=== PATIENT | female | born 1980 | race Two or more races ===

== ENCOUNTER 2024-11-04 10:58 | Emergency (ER) | payer OTHER ==
[~2024-11-04] VITALS: Ht 157.5 cm; Wt 64.4 kg
[2024-11-04] MEDS ORDERED: 0.9 % SODIUM CHLORIDE 500 ML IV ONE (11:15)
[2024-11-04 12:04] LABS: BASO % 0.3 % (0.1-1.2); EOS # 0.03 (0.04-0.54); EOS % 0.3 % (0.7-7.0); LYMPH # 1.06 (1.18-3.74); LYMPH % 9.0 % (19.3-53.1); MEAN PLATELET VOLUME 11.30 fl (9.4-12.4); MONO # 0.47 (0.24-0.82); MONO % 4.0 % (4.7-12.5); NEUT # 10.15 (1.56-6.13); NEUT % 86.1 % (34.0-71.1); RED CELL DISTRIBUTION WIDTH 13.0 % (11.6-14.4)
[2024-11-04 12:08] LABS: COVID-19 AG NEGATIVE (NEGATIVE)
[2024-11-04 12:13] LABS: ALT/SGPT 22.0 U/L (12-78); AST/SGOT 18.0 U/L (15-37); BILIRUBIN TOTAL 0.6 mg/dL (0.3-1.2); BUN CREA RATIO 13.0 (7.0-25.0); CREATININE SERUM 0.83 mg/dL (0.55-1.02); GFR 74.34; GLOBULINA 3.5 G/DL (2.4-3.5); GLUCOSE FASTING 88.0 mg/dL (65-100); OSMOLALITY SERUM 278.0 MOSM/KG (275-295)
== END 2024-11-04 14:55 | disposition home or self-care (01) ==
LOC: ER 10:58
PROVIDERS: General Practice
DX: R55 Syncope and collapse (principal); Z20.822 Contact with and (suspected) exposure to COVID-19